=== PATIENT | female | born 1940 | race Caucasian/White ===

== ENCOUNTER 2021-02-12 11:01 | Day surgery (SDC) | payer OTHER ==
[2021-02-09 10:00] LABS: Absolute Lymphocytes (CBC) 0.7 K/uL (0.7-4.9); Basophils % 0.8 % (0-1.3); Hematocrit 45.9 % (36.0-45.0); Lymphocytes % 15.6 % (15.3-44.8); MPV 8.2 fL (7.6-11.3); RBC Red Blood Cell Count 5.33 M/uL (3.86-4.86)
[2021-02-09 10:08] LABS: Potassium 4.7 mmol/L (3.5-5.1); Protime INR 1.15
--- NOTE | 2021-02-09 10:20 | RAD REPORT ---
EXAM DESCRIPTION: RAD - Chest Pa And Lat (2 Views) - 02/09/2021 9:48 am CLINICAL HISTORY: PRE CATH PROCEDURE COMPARISON: None TECHNIQUE: Frontal and lateral views of the chest were obtained. FINDINGS: The lungs are clear of peripheral mass or consolidation. Central interstitial markings ar e mildly prominent with baseline unknown. Cardiomegaly is present with mildly prominent upper lobe va sculature. No pneumothorax is present. Costophrenic angle blunting is present from pleural scarring o r small bilateral pleural effusions. No acute bony finding noted. No aortic abnormality. IMPRESSION: Baseline examination shows mild cardiomegaly with mildly prominent vasculature and lung markings. Pleural scarring versus small bilateral pleural effusions. Minimal failure or volume overload is suspected but needs correlation with clinical findings.
[2021-02-12] MEDS ORDERED: NA CHLORIDE 0.9% 500 ML ONE (11:31)
[2021-02-12] MEDS ORDERED: HEPA 1000U/500MLS 1,000 UNIT/500 ML BAG IV ONE (13:47)
[2021-02-12] MEDS ORDERED: FENTANYL CITR 100 MCG/2 ML ONE (13:48)
[2021-02-12] MEDS ORDERED: MIDAZOLAM HCL 2 MG/2 ML INJ ONE (13:48)
[2021-02-12] MEDS ORDERED: VERAPAMIL HCL 10 MG/4 ML VIAL IV ONE (13:48)
[2021-02-12] MEDS ORDERED: ATROPINE SULF 1 MG/10 ML SYR IV ONE (13:49)
[2021-02-12] MEDS ORDERED: HEPARIN 5000 UNIT/ML 1 ML VIAL ONE (13:49)
[2021-02-12] MEDS ORDERED: NITROGLYCERIN 100 MCG/ML SYR (for cath lab use only) IV ONE (13:49)
[2021-02-12 15:16] VITALS: TEMP 97.8
--- NOTE | 2021-02-12 15:27 | OP ---
Date of Procedure: 02/12/2021 Surgeon: MARIEL VORA Procedure Performed: Selective coronary angiogram, access site failed right radial and closed with T R band, and right femoral artery 6-[place] closed with 6-[place] Angio-Seal. Complications: None. Bleeding: Less than 10 mL. Indications: Abnormal stress test. Description Of Procedure: After risks, benefits, and alternatives were explained, the patient agreed to proceed and signed informed consent. The patient was brought into the cardiac catheterization la boratory, prepped and draped in the usual sterile fashion. Then, we accessed the right radial artery using pediatric micropuncture kit and took a 5-[place] tiger 4.0 catheter. However, due to spasm, th is approach was aborted. Then obtained right femoral artery access using micropuncture kit, ultrasou nd guidance and fluoroscopy and placed a 6-[place] sheath and took a 6-[place] JL4 into the ao rtic root, engaged left main and then took a 6-[place] AL1 catheter to engage the RCA and then took st andard views. Then, we removed the catheter and sheath and placed TR band on the wrist and for the g roin, we used a 6-[place] Angio-Seal with good hemostasis. Findings: 1.Left main: Large with luminal irregularities. 2.LAD: Large vessel with luminal irregularities. Diagonal branches are patent. No significant dis ease. 3.Left circumflex: Moderate size and normal. 4.RCA: Large and dominant and normal. Conclusion: No significant coronary artery disease. Plan: Medical management. /EMMA Voice ID: [id number] Report ID: [id number]
[2021-02-12 17:02] VITALS: BP 144/85; O2SAT 97
== END 2021-02-12 17:00 | disposition home or self-care (01) ==
LOC: CCL 11:01
PROVIDERS: ATTEND Internal Medicine
DX: R94.39 Abnormal result of other cardiovascular function study (principal); R07.89 Other chest pain; I48.20 Chronic atrial fibrillation, unspecified; I10 Essential (primary) hypertension; Z88.6 Allergy status to analgesic agent; Z20.822 Contact with and (suspected) exposure to COVID-19
CPT/HCPCS: 85025; 80048; 36415; 85610; 85730; 71046; 93454; U0003; C1893; C1760; J1644 ×2; J2250; J3010; J7040